=== PATIENT | female | born 1955 | race Caucasian/White ===

== ENCOUNTER → 2016-08-04 | Outpatient (CLI) | payer BC ==
--- NOTE | 2016-08-04 10:52 | REPMRS ---
Patient History The patient states she had a clinical breast exam in 07/21 Patient is postmenopausal and has history of colorectal cancer at age 36. Family history of breast cancer in mother under age 50 and colorectal cancer in daughter at age 38. Digital Woman Screen Mammo: August 04, 2016 - Exam #: [id number] Bilateral CC and MLO view(s) were taken. Technologist: Loretta Washington, Technologist Prior study comparison: May 12, 2015, digital woman screen mammo performed at [facility]. June 02, 2009, digital bilateral screening mammo performed at [facility]. March 11, 2008, bilateral screening mammogram performed at [facility]. FINDINGS: The breast tissue is heterogeneously dense. This may lower the sensitivity of mammography. There has been no change in the appearance of the mammogram from the prior studies. There is a moderate amount of residual fibroglandular tissue which is fairly symmetric. A nodular area of tissue asymmetry in the outer right breast is unchanged dating back to 2007. There is no interval development of dominant mass, architectural distortion, or clustered microcalcification typical of malignancy. Scattered lymph nodes are seen in the axillae. There are scattered, small, benign calcifications of doubtful clinical significance. Large coarse benign appearing calcifications are present. No significant changes when compared with prior studies. ASSESSMENT: BI-RADS/ACR category 2 mammogram. Benign finding(s). Recommendation Routine screening mammogram in 1 year (for women over age 40). This mammogram was interpreted with the aid of an FDA-approved computer-aided dectection system. A. Negative x-ray reports should not delay biopsy if a dominant or clinically suspicious mass is present. B. Four to eight percent of cancers are not identified by mammography. C. Adenosis and dense breast may obscure an underlying neoplasm. Electronically Signed By: Dom Shea MD 08/04/16 [id number]
== END ==
LOC: M WHC 09:48
PROVIDERS: ATTEND Nurse Practitioner Women's Health
DX: Z12.31 Encounter for screening mammogram for malignant neoplasm of breast (principal); Z78.0 Asymptomatic menopausal state; Z85.038 Personal history of other malignant neoplasm of large intestine; Z80.3 Family history of malignant neoplasm of breast

== ENCOUNTER → 2018-02-15 | Outpatient (CLI) | payer BC | LOC: M WHC 08:16 | DX: Z12.31 Encounter for screening mammogram for malignant neoplasm of breast (principal); R92.0 Mammographic microcalcification found on diagnostic imaging of breast; Z80.3 Family history of malignant neoplasm of breast; Z80.0 Family history of malignant neoplasm of digestive organs | CPT/HCPCS: 77067 ==

== ENCOUNTER 2018-06-04 10:36 | Day surgery (SDC) | payer BC ==
[~2018-06-04] VITALS: Ht 157.5 cm; Wt 61.2 kg
[~2018-06-04 10:36] MED LIST: CYMB60CA3 PO; HYDR200T3 PO; OMEP20CA3 PO; ZYRT10CA5 PO; ceFAZolin SOD 1 GM in D5W MINI-BAG PLUS 50 ML IV ONE
[2018-06-04] MEDS ORDERED: LR 1,000 ML IV SCH ×2 (11:15→14:15)
[2018-06-04] MEDS ORDERED: ceFAZolin SOD 1 GM in D5W MINI-BAG PLUS 50 ML IV ONE (11:15)
[2018-06-04] MEDS ORDERED: dexameTHASONE 4 MG/ML 1ML VIAL (J1100) As Ordered ONE (11:34)
[2018-06-04] MEDS ORDERED: LIDOCAINE 2% INJ 100 MG/5 ML SDV (FOR ANES.) As Ordered ONE (11:34)
[2018-06-04] MEDS ORDERED: ROCURONIUM BROMIDE 50 MG/5 ML VIAL As Ordered ONE (11:34)
[2018-06-04] MEDS ORDERED: PROPOFOL 200 MG/20 ML VIAL As Ordered ONE (11:34)
[2018-06-04] MEDS ORDERED: MIDAZOLAM INJ 2 MG/2 ML VIAL (J2250) As Ordered ONE (11:34)
[2018-06-04] MEDS ORDERED: PRED10TA2 (11:35)
[2018-06-04] MEDS ORDERED: fentaNYL 100 MCG/2 ML INJECTION (J3010) As Ordered ONE ×2 (11:35→13:04)
[2018-06-04] MEDS ORDERED: CONRAY-60 60% 50ML VIAL (Q9961) As Ordered ONE (11:55)
[2018-06-04] MEDS ORDERED: GLUCAGON FOR INJ 1 MG VIAL (J1610) As Ordered ONE (11:55)
[2018-06-04] MEDS ORDERED: BUPIVACAINE/EPIN 0.25% 30 ML VIAL As Ordered ONE (11:55)
[2018-06-04] MEDS ORDERED: SUCCINYLCHOLINE 100 MG/5 ML SYRINGE (J0330) As Ordered ONE (12:10)
[2018-06-04] MEDS ORDERED: SUGAMMADEX SODIUM 500 MG/5 ML VIAL (BRIDION) As Ordered ONE (13:02)
[2018-06-04] MEDS ORDERED: KETOROLAC 60 MG/2 ML VIAL (J1885) As Ordered ONE (13:51)
[2018-06-04] MEDS ORDERED: ESMOLOL INJ 100MG/10ML VIAL As Ordered ONE (14:05)
[2018-06-04] MEDS ORDERED: ONDANSETRON 4MG/2ML VIAL (J2405) IV PRN ×2 (14:15→15:00)
--- NOTE | 2018-06-04 14:48 | RO ---
DATE OF PROCEDURE: 06/04/2018 PREOPERATIVE DIAGNOSIS: Cholecystitis. POSTOPERATIVE DIAGNOSES: 1. Multiple intraabdominal adhesions 2. Cholecystitis. PROCEDURES: 1. Laparoscopic lysis of adhesions. 2. Laparoscopic cholecystectomy. SURGEON: Dr. Wisam Matute ANESTHESIA: Genera endotracheal anesthesia. ESTIMATED BLOOD LOSS: Minimal. FLUIDS: Crystalloid. BRIEF PROCEDURE SUMMARY: Patient was brought to the operating room and was given general anesthesia. After adequate anesthesia and preoperative antibiotics were given the patient was prepped and draped in the usual sterile fashion. Patient had a previous abdominal peroneal resection with a colostomy that was just along the midline and off to the left hand side but right at the umbilicus and had an incision that extended above this, also had a lower Pfannenstiel incision. Thus we made an incision in the right subcostal area and Veress needle was placed into the peritoneum insufflated to 15 mm of pressure. A dilating 5 mm trocar was placed. There were multiple adhesions in the midline, multiple adhesions on the falciform ligament of the omentum up to the falciform there is some small bowel that was adherent near the midline next to the ostomy itself and some adhesions extending towards the gallbladder. In any case a second 5 mm trocar was placed inferiorly to the first one placed and then using sharp dissection as well as harmonic scalpel in the omentum and after extensive dissection and removing the omentum off the falciform ligament and clearing the midline and just a little bit of left of midline most of this was taken down off the abdominal wall in this area. Once it was cleared enough then I was able to place a 5 mm trocar in the epigastric area, this is typically placed for a laparoscopic cholecystectomy. However in the periumbilical area there was still a lot of adhesions and even small bowel and even bowel working up towards the ostomy. I used some sharp dissection with scissors in this area to take down some adhesions and once this was adequately mobilized away from the ostomy itself and allowed for trocar placement the 10 mm trocar was placed at the site. Patient had also some adhesions in the gallbladder up to the omentum and this was taken down with the hook cautery. There are numerous adhesions up in the subcostal area and subdiaphragmatic area where there were adhesions of the liver to the abdominal wall in this area and a lot of adhesions were taken down but not the entire amount. Eventually the gallbladder was grasped, retracted superiorly and there was a large lobe of the liver in this area and that made dissection a little bit more difficult to get around and it was obvious there was some cirrhotic changes to the liver itself but once I was able to get the peritoneum off the neck of the gallbladder and draw this laterally I was able to see the cystic artery going nicely up on to the gallbladder itself. The loose area of tissue around the neck of the gallbladder was cleared laterally and then anteriorly and then once the cystic artery was readily identified it was clipped proximally, distally and transected. I was able to create a window behind the neck of the gallbladder after mobilizing this even further and mobilizing the neck of the gallbladder laterally, I was able to get the cystic duct gallbladder neck junction visualized better and right inguinal clamp was used to dissect out this are making sure there were no stones in the neck and once this was milked and revealed no stones clips were placed on this proximally and distally and then transected. The gallbladder was removed from the gallbladder bed and using electrocautery placed in an Endo Catch bag and brought out through the umbilicus. Next the right upper quadrant was copiously irrigated until clear. The operative field was clean and dry and all trocars were removed under direct visualization. The umbilical side did show that there was more than adequate room around the incision and closed this fascial defect with the UR6 as we typically do. In any case, the trocars were removed under direct visualization. The umbilical area was closed with #0 Vicryl in the fascial layer. All incision were closed with #4-0 Vicryl and steri-strips and a dry sterile dressing was applied and the patient was awakened from anesthesia, extubated, brought to the recovery room awake, alert and hemodynamically stable. Sponge and needle counts were correct times two.
[2018-06-04] MEDS: PERCOCET 5MG/325MG TAB PO PRN ×2 (14:50→15:20)
[2018-06-04] MEDS: fentaNYL 100 MCG/2 ML INJECTION (J3010) IV PRN ×4 (14:55→15:10)
[2018-06-04] MEDS ORDERED: NORCO, ANEXSIA 5/325MG TABLET (HYDROcodone/ACETAMINOPHEN) PO PRN (15:00)
[2018-06-04 16:00] VITALS: BP 133/62
== END 2018-06-04 16:12 | disposition home or self-care (01) ==
LOC: M SDC 10:36
PROVIDERS: ATTEND Surgery
DX: K80.18 Calculus of gallbladder with other cholecystitis without obstruction (principal); N73.6 Female pelvic peritoneal adhesions (postinfective); K21.9 Gastro-esophageal reflux disease without esophagitis; Z79.899 Other long term (current) drug therapy; M06.9 Rheumatoid arthritis, unspecified; F17.210 Nicotine dependence, cigarettes, uncomplicated; Z88.5 Allergy status to narcotic agent
CPT/HCPCS: 47562; 49329; 88304; J0330; J0690; J1100; J1885; J2250; J3010

== ENCOUNTER → 2019-07-10 | Outpatient (CLI) | payer BC ==
[~2019-07-10] MED LIST changes: +OMEP1CAP73 PO; -OMEP20CA3 PO; +PRED10TA2; -ceFAZolin SOD 1 GM in D5W MINI-BAG PLUS 50 ML IV ONE
--- NOTE | 2019-07-10 11:57 | REPMRS ---
Patient History The patient states she had a clinical breast exam in 2019. Family history of breast cancer under age 50 in mother, colorectal cancer at age 38 in daughter. Digital Woman Screen Mammo: July 10, 2019 - Exam #: [id number] Bilateral CC and MLO view(s) were taken. Technologist: Lisa Sewell, Technologist Prior study comparison: February 15, 2018, bilateral digital woman screen mammo performed at [facility]. August 04, 2016, digital woman screen mammo performed at [facility]. May 12, 2015, digital woman screen mammo performed at [facility]. FINDINGS: The breast tissue is heterogeneously dense. This may lower the sensitivity of mammography. There is a nodular opacity again noted in the right central breast unchanged from multiple prior studies. There is a moderate amount of heterogeneously dense fibroglandular tissue which is fairly symmetric. There is no interval development of dominant mass, architectural distortion, or grouped microcalcification typical of malignancy. There has been no change in the appearance of the mammogram from the prior studies. 3-D tomosynthesis shows no additional findings. Assessment: BI-RADS/ACR category 2 mammogram. Benign Findings. Recommendation Routine screening mammogram of both breasts in 1 year (for women over age 40). This patient's Lifetime Breast Cancer RIsk is estimated at 8.0 %. This mammogram was interpreted with the aid of an FDA-approved computer-aided dectection system. Electronically Signed By: Prince Sandhu MD 07/10/19 [id number]
== END ==
LOC: M WHC 09:43
PROVIDERS: ATTEND Family Medicine
DX: Z12.31 Encounter for screening mammogram for malignant neoplasm of breast (principal); Z80.3 Family history of malignant neoplasm of breast; Z80.0 Family history of malignant neoplasm of digestive organs

== ENCOUNTER → 2020-12-16 | Outpatient (CLI) | payer BC ==
[~2020-12-16] MED LIST changes: +GLUCAGON INJ 1MG VIAL As Ordered ONE; +NEULUMEX 0.1% SUSPENSION 450ML BOTTLE (FORMERLY VOLUMEN) As Ordered ONE
--- NOTE | 2020-12-16 15:48 | REP ---
INDICATION: ILEOSTOMY STATUS. History of colon carcinoma post colectomy. COMPARISON: Comparison CT study is from September 12, 2020.. TECHNIQUE: The patient ingested oral Volumen for PO contrast per protocol. 0.6 mg of intravenous glucagon is administered. Isovue 370 is withheld in deference to the patient's renal insufficiency, serum creatinine 1.92. Helical scanning is acquired. Thick slab coronal and sagittal MIP images are generated. In addition coronal and sagittal multiplanar re-formation images are generated and reviewed along with axial images. FINDINGS: Digital preliminary apprentice/lineman radiograph demonstrates a left lower quadrant enterostomy. There are clips in right upper quadrant. Lung bases are clear on axial CT images. There is no evidence of pleural effusion or upper abdominal ascites. The liver is normal in size homogeneous in texture. No focal hepatic or splenic lesion is seen. The gallbladder appears to be surgically absent with clips in the gallbladder fossa. Normal adrenal glands are observed bilaterally. The kidneys are morphologically intact. There is mild fullness of the renal pelvis and proximal ureter on the right there are phleboliths in the gonadal vein on the right. The fullness in the renal pelvis is unchanged from September 12, 2020. Vascular calcification is noted in a normal caliber aorta. No pancreatic abnormality is seen. Previous study showed gastric distension. There is mild fullness of the stomach on today's CT study. No mural abnormality is seen. There is fairly good luminal distension of the small intestine with ingested volume min. Evaluation of the gastrointestinal mujica is limited by the lack of IV contrast but no obstructive lesion is seen. There is a left lower quadrant enterostomy. No obstructive lesion is seen. The bowel gas pattern is improved from the prior study from September 12, 2020. Patient is apparently status post abdominal peroneal resection. There is soft tissue fullness in the presacral soft tissues in the midline of uncertain significance. This is unchanged from the September 12, 2020 study. It is difficult to exclude residual or recurrent presacral colonic neoplastic disease. There is no pelvic or retroperitoneal adenopathy apparent. No free fluid is seen today. There is no evidence of parastomal hernia associated with the left lower quadrant enterostomy. IMPRESSION: Noncontrast CT enterography shows improved bowel gas pattern. Post colectomy and apparently, status post abdominal peroneal resection. Somewhat nodular soft tissue thickening in the presacral region. Cannot exclude residual or recurrent neoplasm. No evidence of parastomal hernia or other parastomal pathology. Stable fullness in the intrarenal collecting system of the right kidney. <Electronically signed by Prince Sandhu > 12/16/20 [id number]
== END ==
LOC: M RAD 09:37
PROVIDERS: ATTEND Surgery
DX: Z93.2 Ileostomy status (principal); R25.2 Cramp and spasm
CPT/HCPCS: 74177; J1610

== ENCOUNTER → 2022-07-04 | Outpatient (CLI) | payer MEDICARE, BC ==
[~2022-07-04] MED LIST changes: +CALCTAB41 PO; +CODE15TA; +CYAN1000VL IM; -CYMB60CA3 PO; +CYMB60CA4 PO; +DULO40CA PO; -GLUCAGON INJ 1MG VIAL As Ordered ONE; +HEALCHW2 PO; +LOPE1CAP5; -NEULUMEX 0.1% SUSPENSION 450ML BOTTLE (FORMERLY VOLUMEN) As Ordered ONE; +ONDA-83; +PRIL20TA2 PO; +ZYRTTAB8 PO
== END ==
LOC: M ONCM 08:41
PROVIDERS: ATTEND Dietitian, Registered
DX: D53.9 Nutritional anemia, unspecified (principal); D69.6 Thrombocytopenia, unspecified; D72.810 Lymphocytopenia; Z68.20 Body mass index [BMI] 20.0-20.9, adult; Z71.3 Dietary counseling and surveillance

== ENCOUNTER → 2022-10-26 | Outpatient (REF) | payer MEDICARE, BC ==
[~2022-10-26] MED LIST changes: -CODE15TA; +CODE15TA PO; +DULO20CA27 PO; +FLINCHW14 PO; -HYDR200T3 PO; +HYDR200T46 PO; +LOPE2CAP PO; +MAGN400T2; +MORP4INJ2 IV; +OMEP-173; -ONDA-83; +ONDA-83 PO; +ONDA4INJ4 IV; +PANT40IN4 IV; +PANT40TA29 PO; +ZOSY1SOL4 IV
[2022-10-26 12:21] LABS: ALBUMIN 1.2 G/DL (3.2-5.2); BILIRUBIN,TOTAL 2.2 MG/DL (0.3-1.2); CALCIUM LEVEL 7.7 MG/DL (8.3-10.6); CREATININE FOR GFR 1.04 MG/DL (0.55-1.30); GLOMERULAR FILTRATION RATE 56.4 (>45); MAGNESIUM LEVEL 1.3 MG/DL (1.8-2.4); PHOSPHORUS LEVEL 2.7 MG/DL (2.4-5.1); POTASSIUM SERUM 3.8 MMOL/L (3.5-5.1); TOTAL PROTEIN 6.9 G/DL (5.7-8.2)
[2022-10-26 12:43] LABS: RED BLOOD COUNT 1.93 10^6/uL (4.00-5.40)
[2022-10-26 12:44] LABS: HEMOGLOBIN 6.6 g/dl (12.0-15.5); MEAN CORPUSCULAR HEMOGLOBIN 34.2 pg (27.0-33.0); MEAN CORPUSCULAR HGB CONC 33.3 g/dl (32.0-36.5); MEAN CORPUSCULAR VOLUME 102.6 fl (80.0-96.0); PLATELET COUNT, AUTOMATED 43 10^3/uL (150-450)
[2022-10-26 12:46] LABS: HEMATOCRIT 19.8 % (36.0-47.0)
[2022-10-26 15:35] LABS: BASO % 0.7 % (0.0-1.0); EOS # 0.1 10^3/uL (0.0-0.5); EOS % 2.7 % (0.0-3.0); LYMPH # 1.1 10^3/uL (1.5-5.0); MONO # 0.4 10^3/uL (0.0-0.8); MONO % 10.9 % (2.0-8.0); NEUTROPHILS # 2.4 10^3/uL (1.5-8.5); NEUTROPHILS % 59.2 % (36.0-66.0)
== END ==
LOC: M LAB REF 11:30
PROVIDERS: ATTEND Family Medicine
DX: R60.9 Edema, unspecified (principal); D53.0 Protein deficiency anemia; D69.6 Thrombocytopenia, unspecified; K71.7 Toxic liver disease with fibrosis and cirrhosis of liver; Z79.899 Other long term (current) drug therapy

== ENCOUNTER 2022-10-27 12:22 | Outpatient (CLI) | payer MEDICARE, BC ==
[~2022-10-27] VITALS: Ht 154.9 cm; Wt 50.0 kg
[~2022-10-27 12:22] MED LIST changes: +ACETAMINOPHEN TAB 650MG DOSE (2X325MG) PO SCH; +diphenhydrAMINE 25MG CAP PO SCH
[2022-10-27 13:16] VITALS: BP 95/57; TEMP 97.7; O2SAT 96
[2022-10-27 13:30] VITALS: BP 100/68; TEMP 97.8; O2SAT 99
[2022-10-27 14:20] VITALS: BP 115/88; TEMP 97.8; O2SAT 100
[2022-10-27 15:19] VITALS: BP 118/73; TEMP 98.4; O2SAT 100
[2022-10-27] MEDS ORDERED: FUROSEMIDE 20MG/2ML VIAL IV ONE (15:30)
[2022-10-27 15:45] VITALS: BP 134/63; TEMP 98.6; O2SAT 97
[2022-10-27 16:49] VITALS: BP 115/58; TEMP 98.6; O2SAT 98
== END 2022-10-27 17:35 | disposition home or self-care (01) ==
LOC: M INFU 12:22
PROVIDERS: ATTEND Specialist
DX: D64.9 Anemia, unspecified (principal)
CPT/HCPCS: 36430; 96375; J1940; P9016

== ENCOUNTER 2022-11-30 11:11 | Emergency (ER) | payer MEDICARE, BC ==
[~2022-11-30] VITALS: Ht 154.9 cm; Wt 45.8 kg
[~2022-11-30 11:11] MED LIST changes: -ACETAMINOPHEN TAB 650MG DOSE (2X325MG) PO SCH; +CODE30TA PO; +CYAN1000VL SC; +DULO1CAP5 PO; +FERR325T19 PO; +LOPE1CAP5 PO; +MAGN400T2 PO; -diphenhydrAMINE 25MG CAP PO SCH
[2022-11-30] MEDS ORDERED: diphenhydrAMINE 50MG/ML VIAL IV STA (12:12)
[2022-11-30] MEDS ORDERED: NS 1,000 ML IV SCH (12:15)
[2022-11-30] MEDS ORDERED: methylPREDNISolone 125MG 2ML VIAL IV ONE (12:15)
[2022-11-30 12:35] LABS: VENOUS BASE EXCESS -9.5 (-2.0-2.0); VENOUS HCO3 17.7 MMOL/L (23.0-27.0); VENOUS O2 SATURATION 59.9 % (60.0-80.0); VENOUS PARTIAL PRESSURE CO2 43.8 mmHg (38.0-50.0); VENOUS PARTIAL PRESSURE O2 35.1 mmHg (30.0-50.0); VENOUS PH 7.224 UNITS (7.330-7.430); VENOUS STANDARD HCO3 16.3 MMOL/L
[2022-11-30 12:41] LABS: BASO % 0.2 % (0.0-1.0); EOS # 0.1 10^3/uL (0.0-0.5); EOS % 0.6 % (0.0-3.0); HEMATOCRIT 26.8 % (36.0-47.0); HEMOGLOBIN 8.9 g/dl (12.0-15.5); LYMPH # 0.8 10^3/uL (1.5-5.0); LYMPH % 6.4 % (24.0-44.0); MEAN CORPUSCULAR HEMOGLOBIN 33.3 pg (27.0-33.0); MEAN CORPUSCULAR HGB CONC 33.2 g/dl (32.0-36.5); MEAN CORPUSCULAR VOLUME 100.4 fl (80.0-96.0); MONO # 0.9 10^3/uL (0.0-0.8); NEUTROPHILS # 10.6 10^3/uL (1.5-8.5); NEUTROPHILS % 84.6 % (36.0-66.0); RED BLOOD COUNT 2.67 10^6/uL (4.00-5.40); WHITE BLOOD COUNT 12.5 10^3/uL (4.0-10.0)
[2022-11-30 12:42] LABS: PLATELET COUNT, AUTOMATED 68 10^3/uL (150-450)
[2022-11-30 13:04] LABS: INR 1.8; PROTHROMBIN TIME 21.2 SECONDS (12.5-14.5)
[2022-11-30 13:05] LABS: PARTIAL THROMBOPLASTIN TIME 39.2 SECONDS (24.8-34.2)
[2022-11-30 13:06] LABS: ALBUMIN 1.6 G/DL (3.2-5.2); ALKALINE PHOSPHATASE 172 U/L (46-116); ALT/SGPT 27 U/L (7.0-40); AMYLASE 45 U/L (30-118); AST/SGOT 36 U/L (<34); BILIRUBIN,DIRECT 2.2 MG/DL (<0.4); BILIRUBIN,TOTAL 3.2 MG/DL (0.3-1.2); BLOOD UREA NITROGEN 25 MG/DL (9-23); CALCIUM LEVEL 8.1 MG/DL (8.3-10.6); CARBON DIOXIDE LEVEL 18 MMOL/L (20-31); CHLORIDE LEVEL 102 MMOL/L (98-107); CK-MB VALUE MASS < 1.0 NG/ML (<3.6); CPK CREATINE PHOSPHOKINASE 42 U/L (34-145); CREATININE FOR GFR 1.38 MG/DL (0.55-1.30); GLOMERULAR FILTRATION RATE 40.7 (>45); GLUCOSE, FASTING 117 MG/DL (74-106); MB/CK RELATIVE INDEX 2.38 (< OR =4); POTASSIUM SERUM 4.9 MMOL/L (3.5-5.1); SODIUM LEVEL 128 MMOL/L (136-145); TOTAL PROTEIN 8.4 G/DL (5.7-8.2)
[2022-11-30 14:11] VITALS: O2SAT 99
[2022-11-30] MEDS ORDERED: METH4PACK PO (14:20)
[2022-11-30] MEDS ORDERED: NITR-67 PO (14:20)
[2022-11-30 14:59] VITALS: BP 117/58; TEMP 96.8
== END 2022-11-30 15:37 | disposition home or self-care (01) ==
LOC: M ED 11:11
DX: N39.0 Urinary tract infection, site not specified (principal); R53.83 Other fatigue; E86.0 Dehydration; D69.6 Thrombocytopenia, unspecified; Z79.899 Other long term (current) drug therapy
CPT/HCPCS: 71045; 80048; 80076; 81001; 82150; 82550; 82553; 82803; 83605; 84145; 84484; 85025; 85049; 85055; 85610; 85730; 86140; 86850; 86900; 86901; 87040; 87086; 93005; 93041; 94760; 96360; 96361; 99285; J1200; J2930

== ENCOUNTER → 2022-12-06 | Outpatient (CLI) | payer MEDICARE, BC ==
[~2022-12-06] VITALS: Ht 156.2 cm; Wt 44.6 kg
[~2022-12-06] MED LIST changes: +GLYC1TAB18 PO; +METH4PACK PO; +NITR-67 PO
[2022-12-06 10:37] VITALS: BP 124/71; TEMP 96.3; O2SAT 100
[2022-12-06 11:58] LABS: BASO % 0.3 % (0.0-1.0); EOS # 0.2 10^3/uL (0.0-0.5); EOS % 1.7 % (0.0-3.0); HEMATOCRIT 29.8 % (36.0-47.0); HEMOGLOBIN 9.9 g/dl (12.0-15.5); LYMPH # 1.3 10^3/uL (1.5-5.0); LYMPH % 11.4 % (24.0-44.0); MEAN CORPUSCULAR HEMOGLOBIN 33.3 pg (27.0-33.0); MEAN CORPUSCULAR HGB CONC 33.2 g/dl (32.0-36.5); MEAN CORPUSCULAR VOLUME 100.3 fl (80.0-96.0); MONO # 0.7 10^3/uL (0.0-0.8); MONO % 6.1 % (2.0-8.0); NEUTROPHILS # 8.9 10^3/uL (1.5-8.5); NEUTROPHILS % 77.5 % (36.0-66.0); RED BLOOD COUNT 2.97 10^6/uL (4.00-5.40); WHITE BLOOD COUNT 11.5 10^3/uL (4.0-10.0)
[2022-12-06 12:04] LABS: PLATELET COUNT, AUTOMATED 88 10^3/uL (150-450)
[2022-12-06 12:17] LABS: ALBUMIN 1.9 G/DL (3.2-5.2); BILIRUBIN,TOTAL 3.8 MG/DL (0.3-1.2); CALCIUM LEVEL 8.4 MG/DL (8.3-10.6); CREATININE FOR GFR 1.27 MG/DL (0.55-1.30); GLOMERULAR FILTRATION RATE 44.8 (>45); POTASSIUM SERUM 3.9 MMOL/L (3.5-5.1); TOTAL PROTEIN 8.1 G/DL (5.7-8.2)
== END ==
LOC: M PAL 10:15
PROVIDERS: ATTEND Nurse Practitioner Adult Health
DX: D69.6 Thrombocytopenia, unspecified (principal); D72.810 Lymphocytopenia; D53.9 Nutritional anemia, unspecified; K56.699 Other intestinal obstruction unspecified as to partial versus complete obstruction; Z85.038 Personal history of other malignant neoplasm of large intestine; M32.9 Systemic lupus erythematosus, unspecified; K21.9 Gastro-esophageal reflux disease without esophagitis; K74.69 Other cirrhosis of liver; E88.09 Other disorders of plasma-protein metabolism, not elsewhere classified; R10.9 Unspecified abdominal pain; R11.0 Nausea; R63.0 Anorexia; Z51.5 Encounter for palliative care; Z79.891 Long term (current) use of opiate analgesic; Z66 Do not resuscitate; Z79.899 Other long term (current) drug therapy; N18.9 Chronic kidney disease, unspecified; Z80.3 Family history of malignant neoplasm of breast; F17.210 Nicotine dependence, cigarettes, uncomplicated; Z93.2 Ileostomy status; Z80.8 Family history of malignant neoplasm of other organs or systems; R53.83 Other fatigue; E44.0 Moderate protein-calorie malnutrition; R60.9 Edema, unspecified
CPT/HCPCS: 80053; 85025; 85049; 85055; G0463

== ENCOUNTER → 2022-12-07 | Outpatient (CLI) | payer MEDICARE, BC | LOC: M RAD 08:18 | PROVIDERS: ATTEND Specialist | DX: K74.60 Unspecified cirrhosis of liver (principal); R16.2 Hepatomegaly with splenomegaly, not elsewhere classified; K76.89 Other specified diseases of liver ==